=== PATIENT | female | born 1950 | race Caucasian/White ===

== ENCOUNTER 2017-06-01 21:25 | Emergency (ER) | payer SELFPAY ==
--- NOTE | 2017-06-01 22:21 | PDOC ---
History of Present Illness - General History Source: Patient, EMS Exam Limitations: Intoxication - History of Present Illness Initial Comments: 06/01/17 23:07 The patient is a 67 year old male brought in by EMS for alcohol intoxication. On evaluation the patient complains of chest pain, abdominal pain, and generalized pain. Patient is unable to provide remainder of history secondary to intoxication. <Blanca Muse - Last Filed: 06/02/17 01:00> <Paulette Dutta - Last Filed: 06/02/17 05:58> - General Stated Complaint: INTOX Time Seen by Provider: 06/01/17 21:37 Past History <Blanca Muse - Last Filed: 06/02/17 01:00> - Immunization History Immunization Up to Date: Yes - Psycho/Social/Smoking Cessation Hx Anxiety: No Suicidal Ideation: No Smoking History: Current every day smoker Have you smoked in the past 12 months: No Number of Cigarettes Smoked Daily: 10 Hx Alcohol Use: No Drug/Substance Use Hx: No Substance Use Type: Alcohol <Paulette Dutta - Last Filed: 06/02/17 05:58> - Past Medical History Allergies/Adverse Reactions: Allergies Allergy/AdvReac Type Severity Reaction Status Date / Time No Known Allergies Allergy Verified 06/02/17 00:05 Home Medications: Ambulatory Orders NK [No Known Home Medication] 07/09/16 Review of Systems - Review of Systems Able to Perform ROS?: No Comments:: 06/01/17 23:09 As per HPI. Otherwise unable to obtain ROS secondary to intoxication. <Blanca Muse - Last Filed: 06/02/17 01:00> *Physical Exam - Physical Exam Comments: 06/01/17 23:11 GENERAL: Somnolent but arousable. Not oriented to time or place. Malodorous. HEAD: No signs of trauma EYES: PERRLA, EOMI, sclera anicteric, conjunctiva clear ENT: Auricles normal inspection, hearing grossly normal, nares patent, oropharynx clear without exudates. Moist mucosa NECK: Normal ROM, supple, no lymphadenopathy, JVD, or masses LUNGS: +Decreased breath sounds at the right lower lobe. +Mild expiratory wheezing. HEART: Regular rate and rhythm, normal S1 and S2, no murmurs, rubs or gallops ABDOMEN: Soft, nontender, normoactive bowel sounds. No guarding, no rebound. No masses EXTREMITIES: Normal range of motion, no edema. No clubbing or cyanosis. No cords, erythema, or tenderness NEUROLOGICAL: Cranial nerves II through XII grossly intact. Slurred speech, gait deferred. SKIN: Warm, Dry, normal turgor, no rashes noted. <Blanca Muse - Last Filed: 06/02/17 01:00> Heart Score/ECG Review #1 06/02/17 01:00 EKG obtained 00:34. NSR at 73 bpm. Left anterior fascicular block. Abnormal EKG. <Blanca Muse - Last Filed: 06/02/17 01:00> ED Treatment Course - LABORATORY CBC & Chemistry Diagram: 06/02/17 00:41 06/02/17 00:41 <Blanca Muse - Last Filed: 06/02/17 01:00> - LABORATORY CBC & Chemistry Diagram: 06/02/17 00:41 06/02/17 00:41 <Paulette Dutta - Last Filed: 06/02/17 05:58> Medical Decision Making - Medical Decision Making 06/02/17 02:02 Pt comes with alcohol intox. I have never seen him before and he has never had labs in our ER, as such I will check labs and CXR and EKG. CXR normal; EKG NSR; labs normal. No underlying medical illness, just alcohol intox. 06/02/17 06:57 Pt is awake and alert and he is walking without difficulty throughout the ER, requesting to leave. Pt asked us to remove his IV after recieving the entire banana bag. He is stable for discharge at this time. <Paulette Dutta - Last Filed: 06/02/17 05:58> *DC/Admit/Observation/Transfer <Blanca Muse - Last Filed: 06/02/17 01:00> - Discharge Dispostion Admit: No <Paulette Dutta - Last Filed: 06/02/17 05:58> Diagnosis at time of Disposition: ETOH abuse - Discharge Dispostion Disposition: HOME Condition at time of disposition: Stable - Referrals Referrals: STAFF,NOT ON [Primary Care Provider] - - Patient Instructions Printed Discharge Instructions: DI for Alcohol Abuse
[2017-06-01] MEDS ORDERED: FOLIC ACID INJECTION - 1 MG, THIAMINE HCL 100 MG, MULTIVIT INJECTION ADULT 10 ML in SOD... IVPB ONE (22:36)
[2017-06-02 00:05] VITALS: BP 127/79; PULSE 87; TEMP 97.7; BMI 23.6
[2017-06-02 00:51] LABS: BASOPHIL 1.3 % (0-2.0); EOSINOPHIL 9.5 % (0-4.5); MCH 34.5 pg (25.7-33.7); MCHC 33.6 g/dl (32.0-36.0); MEAN CELL VOLUME 102.6 fl (80-96); MEAN PLT VOLUME 7.2 fl (7.5-11.1); NEUTROPHILS 44.1 % (42.8-82.8); PLATELET COUNT 169 K/MM3 (134-434); RDW 13.8 % (11.6-15.6)
[2017-06-02 01:06] LABS: INR 1.02 (0.82-1.09); PROTHROMBIN TIME (PATIENT) 11.2 SEC (9.98-11.88)
[2017-06-02 01:34] LABS: ALBUMIN 3.6 g/dl (3.4-5.0); ALK PHOS 79 U/L (45-117); ANION GAP 12 (8-16); BILIRUBIN,TOTAL 0.8 mg/dL (0.2-1.0); CALCIUM 8.1 mg/dL (8.5-10.1); CO2 25 mmol/L (21-32); CREATININE 0.6 mg/dL (0.55-1.02); GLUCOSE,RANDOM 81 mg/dL (74-106); SGOT/AST 85 U/L (15-37); SGPT/ALT 42 U/L (12-78)
--- NOTE | 2017-06-02 10:23 | EKG ---
Test Reason : Blood Pressure : / mmHG Vent. Rate : 073 BPM Atrial Rate : 073 BPM P-R Int : 160 ms QRS Dur : 094 ms QT Int : 418 ms P-R-T Axes : 065 -51 056 degrees QTc Int : 460 ms NORMAL SINUS RHYTHM LEFT ANTERIOR FASCICULAR BLOCK ABNORMAL ECG NO PREVIOUS ECGS AVAILABLE Confirmed by VIOLETA GALAN MD ([id number]) on 06/02/2017 10:23:03 AM Referred By: Confirmed By:VIOLETA GALAN MD
== END 2017-06-02 06:33 | disposition home or self-care (01) ==
LOC: JER 21:25 → SUPCPDRO 21:25 → JER 06-02 06:33
DX: F10.120 Alcohol abuse with intoxication, uncomplicated (principal); Y90.8 Blood alcohol level of 240 mg/100 ml or more
CPT/HCPCS: 36415; 71010-TC; 80053; 80307; 85025; 85610; 93005; 93010; 99283-25